=== PATIENT | male | born 1975 | race Caucasian/White ===

== ENCOUNTER → 2022-03-02 | Outpatient (CLI) | payer SELFPAY ==
--- NOTE | 2022-03-02 | IMM_PTH ---
PATIENT: JOSE HAMILTON LOC: [facility] U#:[id number] AGE/SX: 46/M ROOM: RE03/02/[address]: Dr. Leobardo Denton DDS : 1975 BED: DIS: 03/02/2022 SPEC #: [id number] RECD: 03/03/22 12:44 STATUS: HERVE RECarolee #: [id number] POLLY: 03/02/22 00:[address]: Leobardo Denton DEPT: IMMUNOHISTOCHEMISTRY RECD BY: Nisa Alicea Tissues: Maxilla, NOS Procedures: CD138 (add) CD20 (add) CD45 (add) CD5 (add) CD79A (add) KAPPA (add) LAMBDA (add) CD3 (initial) PHYSICIAN & INSTITUTION [address] [address] SPECIMEN INFORMATION: Tissue Source: Skin lesion of right maxilla/cheek Clinical Info: Upper right maxilla/cheek area Specimen Number: [id number] CPT code: 41695, 64585 x7 METHODOLOGY: Deparaffinized sections of prefer/formalin-fixed tissue or PAP/DQ stained slides are incubated with monoclonal/polyclonal antibodies/oligonucleotide probes. Localization is made via biotin free immunoperoxidase method. Appropriate controls are performed and reacted as expected. Results on target cell population are indicated in the following table: RESULTS: ANTIBODY / CLONE RESULT CD3 (PS1) positive CD5 (SP10) positive CD20 (L26) negative CD45 (RP2/18) positive CD79a (11E3) positive CD138 (B-A38) positive Cavalier (polyclonal) negative Lambda (polyclonal) negative These tests were developed and their performance characteristics determined by [facility]. They may not have been cleared or approved by the [place]. Food and Drug Administration. The FDA has determined that such clearance or approval is not necessary. The above immunohistochemical/dualISH markers are ordered and reviewed by the Pathologist. INTERPRETATION: Skin lesion of right maxilla/cheek, biopsy: No evidence of lymphoproliferative/plasma cell disorder. AM:maciej 03/04/2022
--- NOTE | 2022-03-02 | LES_PTH ---
PATIENT: JOSE HAMILTON LOC: [facility] U#:[id number] AGE/SX: 46/M ROOM: RE03/02/[address]: Dr. Leobardo Denton DDS : 1975 BED: DIS: 03/02/2022 SPEC #: [id number] RECD: 03/02/22 13:03 STATUS: HERVE TERRA #: [id number] POLLY: 03/02/22 00:[address]: Leobardo Denton DEPT: SURGICAL PATHOLOGY RECD BY: Duglas Hernandez Tissues: Skin of face, NOS Procedures: Surgery Specimen Level IV HEADER OPERATION: Cheek biopsy PRE-OP DIAGNOSIS: Upper right maxilla cheek area TISSUE SUBMITTED: Upper right maxilla cheek area MICROSCOPIC DIAGNOSIS Skin lesion of right maxilla/cheek, biopsy: Pseudoepitheliomatous hyperplasia. Mucosal erosion with associated chronic inflammation and reactive epithelial change. See comment. AM:maciej 03/03/2022 COMMENT The inflammatory process consists primarily of polytypic plasma cells. Immunohistochemistry ([id number]) supports the above diagnosis. Case has been reviewed in consultation with Dr. Up who concurs with the above diagnosis. IDC:[email or web address] MICROSCOPIC DESCRIPTION Slides are reviewed. GROSS DESCRIPTION Received in fixative is one container labeled with the patient's name and designated right upper cheek. The specimen consists of two pieces of gates mucosal tissue measuring in aggregate 1.5 x 1 x 0.3 cm. The entire specimen is submitted in one cassette. / SJ:maciej 03/02/2022 TC:3 CPT: 86089
== END | disposition home or self-care (01) ==
PROVIDERS: Referring Provider Dentist Oral and Maxillofacial Surgery; Visit Provider Dentist Oral and Maxillofacial Surgery
DX: L98.9 Disorder of the skin and subcutaneous tissue, unspecified (principal)
CPT/HCPCS: 88305; 88341; 88342